=== PATIENT | female | born 1985 | race Caucasian/White ===

== ENCOUNTER 2020-05-31 19:49 | Inpatient (IN) | payer OTHER ==
[2020-05-31] MEDS ORDERED: Ondansetron 4 MG/2 ML SDV IVPUSH PRN (20:43)
[2020-05-31] MEDS ORDERED: Sodium Chloride 0.9% 10 ML Syringe FLUSH PRN (20:43)
[2020-05-31] MEDS ORDERED: Nalbuphine 10 MG/1 ML Vial IVPUSH PRN (20:43)
[2020-05-31] MEDS ORDERED: Oxytocin/Lactated Ringers 10 UNIT/1,000 ML BAG IV SCH (20:45)
--- NOTE | 2020-05-31 21:22 | PCM.LDHP ---
<Annabelle Farias I - Last Filed: 05/31/20 21:03> L&D History of Present Illness - General Date of Service: 05/31/20 Admit Problem/Dx: Patient Status Order with Admit Dx/Problem 05/31/20 20:05 Patient Status [ADT] Routine 05/31/20 20:43 Patient Status [ADT] Routine Admission Diagnosis/Problem Admission Diagnosis/Problem Source of Information: Patient History Limitations: Reports: No Limitations - History of Present Illness Introduction:: Isabel Gómez is a 35-year-old at 38 weeks and 5 days gestational age, and BHARATH of 06/09/2020, that presents to labor and delivery today after her m embranes ruptured earlier this evening. Isabel states that since Dr. Crisostomo swept her membranes this week she has noted discharge of small amounts of mucus and clear fluid. She reports that she experienced a gush of fluid at 6 PM this evening and has had several mild contractions since then. Since her water broke, she has had a continuous leaking of light brown fluid. Patient reports that she experienced contractions at 25 weeks and has been on pelvic rest and modified bed rest since then without any further signs of labor until today. Patient is a current everyday smoker and reports that throughout , she smoked approximately 5 cigarettes per day. She denies headache, changes in vision or right upper quadrant pain. She denies chest pain, shortness of breath, heart palpitations or edema. Labwork 12/06/2019: blood type O positive, HCT 42.3%, HGB 14.0, platelets 273, RPR, HBsAg, HIV, chlamydia, and gonorrhea all negative. 03/02/2020: GBS negative Severity: Mild - Related Data Allergies/Adverse Reactions: Allergies Allergy/AdvReac Type Severity Reaction Status Date / Time No Known Allergies Allergy Verified 03/02/20 21:41 Home Medications: Home Meds Vits #93/Iron Fum/FA [ Formula Tablet] 1 each PO DAILY 03/02/20 [History] H&P Review of Systems - Review of Systems: Review Of Systems: See Below General: Reports: No Symptoms HEENT: Reports: No Symptoms Pulmonary: Reports: No Symptoms Cardiovascular: Reports: No Symptoms Gastrointestinal: Reports: No Symptoms Genitourinary: Reports: No Symptoms L&D Exam - Exam Exam: See Below - Vital Signs Weight: 212 lb - Exam General: Alert, Oriented Lungs: Clear to Auscultation, Normal Respiratory Effort Cardiovascular: Regular Rate, Regular Rhythm Extremities: No Pedal Edema Orders Last 24hrs: Active Orders 24 hr Category Date Time Status Patient Status [ADT] Routine ADT 05/31/20 20:43 Active Activity as Tolerated [RC] PFP Care 05/31/20 20:43 Active Communication Order [RC] ASDIRECTED Care 05/31/20 20:43 Active Heart Tones [RC] ASDIRECTED Care 05/31/20 20:44 Active Non Stress Test [RC] PER UNIT ROUTINE Care 05/31/20 20:05 Active Notify Provider [RC] PFP Care 05/31/20 20:43 Active Notify Provider [RC] PRN Care 05/31/20 20:43 Active Peripheral IV Care [RC] . DIRECTED Care 05/31/20 20:44 Active Vital Signs [RC] PER UNIT ROUTINE Care 05/31/20 20:05 Active Regular Diet [DIET] Diet 06/01/20 Breakfast Active CBC WITH AUTO DIFF [HEME] Routine Lab 05/31/20 20:43 Ordered RAPID PLASMA REAGIN,RPR [CHEM] Routine Lab 05/31/20 20:43 Ordered Lactated Ringers [Ringers, Lactated] 1,000 ml Med 05/31/20 20:45 Active IV ASDIRECTED Nalbuphine [Nubain] Med 05/31/20 20:43 Active 10 mg IVPUSH Q2H PRN Ondansetron [Zofran] Med 05/31/20 20:43 Active 4 mg IVPUSH Q4H PRN Oxytocin/Lactated Ringers [Pitocin in LR 10 Units/1,000 Med 05/31/20 20:45 Active ML] 10 unit in 1,000 ml IV TITRATE Sodium Chloride 0.9% [Saline Flush] Med 05/31/20 20:43 Active 10 ml FLUSH ASDIRECTED PRN Electronic Heart Tones Ext w TOCO [WOMSER] Oth 05/31/20 20:43 Ordered Routine Electronic Heart Tones Internal [WOMSER] Per Unit Oth 05/31/20 20:43 Ordered Routine Peripheral IV Insertion Adult [OM.PC] Routine Oth 05/31/20 20:43 Ordered Resuscitation Status Routine Resus Stat 05/31/20 20:04 Ordered Medication Orders Lactated Ringer's (Ringers, Lactated) 1,000 mls @ 100 mls/hr IV ASDIRECTED JAELYN Oxytocin/Lactated Ringer's (Pitocin In Lr 10 Units/1,000 Ml) 10 unit in 1,000 mls @ 12 mls/hr IV TITRATE JAELYN; Protocol Nalbuphine HCl (Nubain) 10 mg IVPUSH Q2H PRN PRN Reason: Pain Ondansetron HCl (Zofran) 4 mg IVPUSH Q4H PRN PRN Reason: Nausea/Vomiting Sodium Chloride (Saline Flush) 10 ml FLUSH ASDIRECTED PRN PRN Reason: Keep Vein Open <Giovany Knight - Last Filed: 06/01/20 10:13> L&D History of Present Illness - General Admit Problem/Dx: Patient Status Order with Admit Dx/Problem 05/31/20 20:05 Patient Status [ADT] Routine 05/31/20 20:43 Patient Status [ADT] Routine Admission Diagnosis/Problem Admission Diagnosis/Problem - History of Present Illness Introduction:: Patient had prior cholecystectomy 2011 and gastric sleeve surgery 2015. L&D Exam - Vital Signs Vital Signs: Last Vital Signs Temp 98.5 F 05/31/20 20:05 Pulse 85 05/31/20 20:05 Resp 14 05/31/20 20:05 BP 122/77 05/31/20 20:05 Pulse Ox 100 05/31/20 20:05 - OB Specific Fundal Height In cm: 37 Contraction Intensity: Mild Movement: Active Heart Tones: Present Heart Tones per Min: 140 Heart Rate (FHR) Variability: Moderate (6-25 bmp) Presentation: Vertex - Waldrop Score Waldrop Score Cervix Position: Posterior [place] Score Consistency: Soft [place] Score Effacement: >80% [place] Score Dilation: 3-4 cm Wal[place] Score 's Station: -1 ,0 Wal[place] Score Total: 9 - Exam HEENT: Mucosa Moist & [place] - Patient Data Lab Results Last 24 hrs: Laboratory Results - last 24 hr 05/31/20 05/31/20 05/31/20 Range/Units 20:50 20:50 20:55 WBC 9.05 (3.98-10.04) K/mm3 RBC 4.01 (3.98-5.22) M/mm3 Hgb 10.9 L D (11.2-15.7) gm/dl Hct 34.6 (34.1-44.9) % MCV 86.3 (79.4-94.8) fl MCH 27.2 (25.6-32.2) pg MCHC 31.5 L (32.2-35.5) g/dl RDW Std Deviation 45.3 (36.4-46.3) fL Plt Count 275 (182-369) K/mm3 MPV 9.1 L (9.4-12.3) fl Neut % (Auto) 61.8 (34.0-71.1) % Lymph % (Auto) 27.6 (19.3-51.7) % [place] % (Auto) 9.3 (4.7-12.5) % Eos % (Auto) 0.9 (0.7-5.8) Baso % (Auto) 0.2 (0.1-1.2) % Neut # (Auto) 5.59 (1.56-6.13) K/mm3 Lymph # (Auto) 2.50 (1.18-3.74) K/mm3 [place] # (Auto) 0.84 H (0.24-0.36) K/mm3 Eos # (Auto) 0.08 (0.04-0.36) K/mm3 Baso # (Auto) 0.02 (0.01-0.08) K/mm3 RPR Non-reactive (NONREACTIVE) SARS-CoV-2 RNA (EVONNE) Negative (NEGATIVE) Result Diagrams: 05/31/20 20:50 - Problem List (1) 38 weeks gestation of SNOMED Code(s): 34851835 ICD Code: Z3A.38 - 38 WEEKS GESTATION OF Status: Acute Current Visit: Yes Problem List Initiated/Reviewed/Updated: No Orders Last 24hrs: Active Orders 24 hr Category Date Time Status Patient Status [ADT] Routine ADT 05/31/20 20:43 Active Activity as Tolerated [RC] PFP Care 05/31/20 20:43 Active Communication Order [RC] ASDIRECTED Care 05/31/20 20:43 Active Heart Tones [RC] ASDIRECTED Care 05/31/20 20:44 Active Notify Provider [RC] ASDIRECTED Care 06/01/20 08:11 Active Notify Provider [RC] PFP Care 05/31/20 20:43 Active Notify Provider [RC] PRN Care 05/31/20 20:43 Active Peripheral IV Care [RC] . DIRECTED Care 05/31/20 20:44 Active Vital Signs [RC] PER UNIT ROUTINE Care 05/31/20 20:05 Active Regular Diet [DIET] Diet 06/01/20 Breakfast Active Bupivacaine/fentaNYL/NS [fentaNYL/Bupivacaine/NS 2 MCG- Med 06/01/20 08:11 Active 0.125% 100 ML] 100 ml EPIDUR ASDIRECTED PRN Lactated Ringers [Ringers, Lactated] 1,000 ml Med 05/31/20 20:45 Active IV ASDIRECTED Nalbuphine [Nubain] Med 05/31/20 20:43 Active 10 mg IVPUSH Q2H PRN Ondansetron [Zofran] Med 05/31/20 20:43 Active 4 mg IVPUSH Q4H PRN Oxytocin/Lactated Ringers [Pitocin in LR 10 Units/1,000 Med 05/31/20 20:45 Active ML] 10 unit in 1,000 ml IV TITRATE Sodium Chloride 0.9% [Saline Flush] Med 05/31/20 20:43 Active 10 ml FLUSH ASDIRECTED PRN diphenhydrAMINE [Benadryl] Med 06/01/20 08:11 Active 25 mg IVPUSH Q6H PRN ePHEDrine [ePHEDrine sulfate] Med 06/01/20 08:11 Active 5 mg IVPUSH ASDIRECTED PRN fentaNYL [Sublimaze] Med 06/01/20 08:11 Active 100 mcg EPIDUR Q3H PRN Electronic Heart Tones Ext w TOCO [WOMSER] Oth 05/31/20 20:43 Ordered Routine Electronic Heart Tones Internal [WOMSER] Per Unit Oth 05/31/20 20:43 Ordered Routine Peripheral IV Insertion Adult [OM.PC] Routine Oth 05/31/20 20:43 Ordered Resuscitation Status Routine Resus Stat 05/31/20 20:04 Ordered Medication Orders Diphenhydramine HCl (Benadryl) 25 mg IVPUSH Q6H PRN PRN Reason: pruritis Ephedrine Sulfate (Ephedrine Sulfate) 5 mg IVPUSH ASDIRECTED PRN PRN Reason: Hypotension Fentanyl (Sublimaze) 100 mcg EPIDUR Q3H PRN PRN Reason: Pain Last Admin: 06/01/20 08:23 Dose: 100 mcg Documented by: OSWALDO Fentanyl/Bupivacaine HCl (Fentanyl/Bupivacaine/Ns 2 Mcg-0.125% 100 Ml) 100 ml EPIDUR ASDIRECTED PRN PRN Reason: Pain Last Admin: 06/01/20 08:23 Dose: 100 ml Documented by: OSWALDO Lactated Ringer's (Ringers, Lactated) 1,000 mls @ 100 mls/hr IV ASDIRECTED JAELYN Last Admin: 06/01/20 08:35 Dose: 999 mls/hr Documented by: Infusion: 06/01/20 08:34 Dose: 999 mls/hr Documented by: Admin: 06/01/20 07:32 Dose: 100 mls/hr Documented by: Infusion: 06/01/20 07:32 Dose: 100 mls/hr Documented by: Admin: 06/01/20 05:00 Dose: 100 mls/hr Documented by: EILEEN Oxytocin/Lactated Ringer's (Pitocin In Lr 10 Units/1,000 Ml) 10 unit in 1,000 mls @ 12 mls/hr IV TITRATE [facility]; Protocol Last Titration: 06/01/20 09:44 Dose: 6 munits/min, 36 mls/hr Documented by: Titration: 06/01/20 08:05 Dose: 4 munits/min, 24 mls/hr Documented by: Titration: 06/01/20 07:35 Dose: 6 munits/min, 36 mls/hr Documented by: Titration: 06/01/20 06:35 Dose: 4 munits/min, 24 mls/hr Documented by: Admin: 06/01/20 05:05 Dose: 2 munits/min, 12 mls/hr Documented by: EILEEN Nalbuphine HCl (Nubain) 10 mg IVPUSH Q2H PRN PRN Reason: Pain Ondansetron HCl (Zofran) 4 mg IVPUSH Q4H PRN PRN Reason: Nausea/Vomiting Last Admin: 05/31/20 23:41 Dose: 4 mg Documented by: MCCRTAM Sodium Chloride (Saline Flush) 10 ml FLUSH ASDIRECTED PRN PRN Reason: Keep Vein Open Assessment/Plan Comment:: Patient seen and examined by me and discussed with student. Plan delivery.
[2020-06-01] MEDS ORDERED: Bupivacaine 0.25% 10 ML SDV ONE
[2020-06-01] MEDS: Lactated Ringers 1,000 ML IV SCH ×4 (05:00→10:19)
[2020-06-01] MEDS ORDERED: diphenhydrAMINE 50 MG/ML SDV IVPUSH PRN (08:11)
[2020-06-01] MEDS ORDERED: ePHEDrine 50 MG/ML SDV IVPUSH PRN (08:11)
[2020-06-01] MEDS ORDERED: fentaNYL 100 MCG/2 ML SDV EPIDUR PRN (08:11)
[2020-06-01] MEDS ORDERED: Bupivacaine/fentaNYL/NS 100 ML Bag EPIDUR PRN (08:11)
--- NOTE | 2020-06-01 09:11 | PCM.PREANE ---
Preanesthetic Assessment - Procedure Proposed Procedure: Labor Epidural - Anesthesia/Transfusion/Family Hx Anesthesia History: Prior Anesthesia Without Reaction Family History of Anesthesia Reaction: No Transfusion History: No Prior Transfusion(s) - Review of Systems General: No Symptoms Pulmonary: No Symptoms (Smoker down to 5 cigarettes a day.), Cough (Noted during visit, occasional productivity. ) Cardiovascular: No Symptoms Gastrointestinal: No Symptoms Neurological: No Symptoms Other: Reports: None - Physical Assessment Vital Signs: Last Vital Signs Temp 36.9 C 05/31/20 20:05 Pulse 85 05/31/20 20:05 Resp 14 05/31/20 20:05 BP 122/77 05/31/20 20:05 Pulse Ox 100 05/31/20 20:05 Height: 1.57 m Weight: 96.162 kg ASA Class: 2 Mental Status: Alert & Oriented x3 Airway Class: Mallampati = 2 Dentition: Reports: Normal Dentition Thyro-Mental Finger Breadths: 2 Mouth Opening Finger Breadths: 3 ROM/Head Extension: Full Lungs: Clear to Auscultation, Normal Respiratory Effort Cardiovascular: Regular Rate, Regular Rhythm - Lab Values: Laboratory Last Values WBC 9.05 K/mm3 (3.98-10.04) 05/31/20 20:50 RBC 4.01 M/mm3 (3.98-5.22) 05/31/20 20:50 Hgb 10.9 gm/dl (11.2-15.7) L D 05/31/20 20:50 Hct 34.6 % (34.1-44.9) 05/31/20 20:50 MCV 86.3 fl (79.4-94.8) 05/31/20 20:50 MCH 27.2 pg (25.6-32.2) 05/31/20 20:50 MCHC 31.5 g/dl (32.2-35.5) L 05/31/20 20:50 RDW Std Deviation 45.3 fL (36.4-46.3) 05/31/20 20:50 Plt Count 275 K/mm3 (182-369) 05/31/20 20:50 MPV 9.1 fl (9.4-12.3) L 05/31/20 20:50 Neut % (Auto) 61.8 % (34.0-71.1) 05/31/20 20:50 Lymph % (Auto) 27.6 % (19.3-51.7) 05/31/20 20:50 [place] % (Auto) 9.3 % (4.7-12.5) 05/31/20 20:50 Eos % (Auto) 0.9 (0.7-5.8) 05/31/20 20:50 Baso % (Auto) 0.2 % (0.1-1.2) 05/31/20 20:50 Neut # (Auto) 5.59 K/mm3 (1.56-6.13) 05/31/20 20:50 Lymph # (Auto) 2.50 K/mm3 (1.18-3.74) 05/31/20 20:50 [place] # (Auto) 0.84 K/mm3 (0.24-0.36) H 05/31/20 20:50 Eos # (Auto) 0.08 K/mm3 (0.04-0.36) 05/31/20 20:50 Baso # (Auto) 0.02 K/mm3 (0.01-0.08) 05/31/20 20:50 RPR Non-reactive (NONREACTIVE) 05/31/20 20:50 SARS-CoV-2 RNA (EVONNE) Negative (NEGATIVE) 05/31/20 20:55 - Allergies Allergies/Adverse Reactions: Allergies Allergy/AdvReac Type Severity Reaction Status Date / Time No Known Allergies Allergy Verified 03/02/20 21:41 - Acknowledgements Anesthesia Type Planned: Epidural Pt an Appropriate Candidate for the Planned Anesthesia: Yes Alternatives and Risks of Anesthesia Discussed w Pt/Guardian: Yes Pt/Guardian Understands and Agrees with Anesthesia Plan: Yes PreAnesthesia Questionnaire HEENT History: Reports: None Cardiovascular History: Reports: None Respiratory History: Reports: None Gastrointestinal History: Reports: None Genitourinary History: Reports: None [employer] History: Reports: Musculoskeletal History: Reports: None Neurological History: Reports: Migraines Other Neuro History: hx migraine headaches as a teen Psychiatric History: Reports: None Endocrine/Metabolic History: Reports: None Hematologic History: Reports: None Immunologic History: Reports: None Oncologic (Cancer) History: Reports: None Dermatologic History: Reports: None - Infectious Disease History Infectious Disease History: Reports: None - Past Surgical History Head Surgeries/Procedures: Reports: None HEENT Surgical History: Reports: Other (See Below) Other HEENT Surgeries/Procedures: Wears glasses Cardiovascular Surgical History: Reports: None Respiratory Surgical History: Reports: None GI Surgical History: Reports: Bariatric Procedure Other GI Surgeries/Procedures: Gastric sleeve surgical procedure 2018-lost 165lbs. Female Surgical History: Reports: None Endocrine Surgical History: Reports: None Neurological Surgical History: Reports: None Musculoskeletal Surgical History: Reports: None Oncologic Surgical History: Reports: None Dermatological Surgical History: Reports: None - SUBSTANCE USE Tobacco Use Status *Q: Current Every Day Tobacco User Tobacco Use Within Last Twelve Months: Cigarettes Second Hand Smoke Exposure: No Recreational Drug Use History: No - HOME MEDS Home Medications: Home Meds Vits #93/Iron Fum/FA [ Formula Tablet] 1 each PO DAILY 03/02/20 [History] - CURRENT (IN HOUSE) MEDS Current Meds: Current Medications Diphenhydramine HCl (Benadryl) 25 mg IVPUSH Q6H PRN PRN Reason: pruritis Ephedrine Sulfate (Ephedrine Sulfate) 5 mg IVPUSH ASDIRECTED PRN PRN Reason: Hypotension Fentanyl (Sublimaze) 100 mcg EPIDUR Q3H PRN PRN Reason: Pain Last Admin: 06/01/20 08:23 Dose: 100 mcg Documented by: Fentanyl/Bupivacaine HCl (Fentanyl/Bupivacaine/Ns 2 Mcg-0.125% 100 Ml) 100 ml EPIDUR ASDIRECTED PRN PRN Reason: Pain Last Admin: 06/01/20 08:23 Dose: 100 ml Documented by: Lactated Ringer's (Ringers, Lactated) 1,000 mls @ 100 mls/hr IV ASDIRECTED JAELYN Last Admin: 06/01/20 08:35 Dose: 999 mls/hr Documented by: Oxytocin/Lactated Ringer's (Pitocin In Lr 10 Units/1,000 Ml) 10 unit in 1,000 mls @ 12 mls/hr IV TITRATE JAELYN; Protocol Last Titration: 06/01/20 08:05 Dose: 4 munits/min, 24 mls/hr Documented by: Nalbuphine HCl (Nubain) 10 mg IVPUSH Q2H PRN PRN Reason: Pain Ondansetron HCl (Zofran) 4 mg IVPUSH Q4H PRN PRN Reason: Nausea/Vomiting Last Admin: 05/31/20 23:41 Dose: 4 mg Documented by: Sodium Chloride (Saline Flush) 10 ml FLUSH ASDIRECTED PRN PRN Reason: Keep Vein Open
--- NOTE | 2020-06-01 10:17 | PCM.SN.2 ---
- Free Text/Narrative Note: At 1005 hrs. cervix is 5 cm dilated 90% effaced 0 station posterior soft uterine activity Suni heart tone electrode placed without difficulty. NU oxytocin augmentation at present time. Good relief from epidural.
[2020-06-01] MEDS ORDERED: Misoprostol 200 MCG Tab ONE ×2 (11:32→11:33)
--- NOTE | 2020-06-01 11:48 | PCM.DEL ---
L & D Note - General Info Date of Service: 06/01/20 Mother's Due Date: 06/09/20 - Delivery Note Labor: Spontaneous, Augmented by Oxytocin Delivery Outcome: Livebirth (Mild liveborn Tuesday06/01/2020 1125 hrs. SUAD nuchal cord x1 weight 2180 g / 4 pounds 12.9 ounces, 8/9 under epidural anesthesia over no episiotomy no laceration estimated blood loss 750 mL Cytotec 200 mcg each cheek x2 doses (400 mcg to aid in hemostasis.) Infant Delivery Method: Spontaneous Vaginal Delivery-Single Delivery Mode: Spontaneous Presentation: Right Occiput Anterior (SUAD) Nuchal Cord: Present (x1 reduced over left shoulder) Prep: Povidone-Iodine (Betadine Anesthesia Type: Epidural Amniotic Fluid Description: Clear Episiotomy Type: None Laceration: None Placenta: Intact, Spontaneous (1128 hrs. 06/01/2020 small but not calcified central cord insertion discarded) Estimated Blood Loss: 750 Resuscitation Needed: No [place]: Suctioned, Bulb Syringe, Stimulated, Warmed, [place] Used, Warmer Used Provider: Giovany Knight Score 1 min: 8 Score 5 min: 9 Induction Criteria - Augmentation Estimated Pelvis: Reports: Adequate Weight Estimated:: Reports: SGA Estimated Weight if LGA: 5 lb 8 oz Reassuring Monitoring Strip: Yes Absence of Tachy Systole: Yes - General Info Date of Service: 06/01/20 Admission Dx/Problem (Free Text): Patient Status Order with Admit Dx/Problem 05/31/20 20:05 Patient Status [ADT] Routine 05/31/20 20:43 Patient Status [ADT] Routine Admission Diagnosis/Problem Admission Diagnosis/Problem Functional Status: Reports: Pain Controlled - Review of Systems General: Reports: No Symptoms HEENT: Reports: No Symptoms Pulmonary: Reports: No Symptoms Cardiovascular: Reports: No Symptoms Gastrointestinal: Reports: No Symptoms Genitourinary: Reports: No Symptoms Musculoskeletal: Reports: No Symptoms Skin: Reports: No Symptoms Neurological: Reports: No Symptoms Psychiatric: Reports: No Symptoms - Patient Data Vitals - Most Recent: Last Vital Signs Temp 98.5 F 05/31/20 20:05 Pulse 85 05/31/20 20:05 Resp 14 05/31/20 20:05 BP 122/77 05/31/20 20:05 Pulse Ox 100 05/31/20 20:05 Weight - Most Recent: 212 lb I&O - Last 24 Hours: Intake & Output 05/31/20 06/01/20 06/01/20 22:59 06:59 14:59 Intake Total 300 Balance 300 Lab Results Last 24 Hours: Laboratory Results - last 24 hr 05/31/20 05/31/20 05/31/20 Range/Units 20:50 20:50 20:55 WBC 9.05 (3.98-10.04) K/mm3 RBC 4.01 (3.98-5.22) M/mm3 Hgb 10.9 L D (11.2-15.7) gm/dl Hct 34.6 (34.1-44.9) % MCV 86.3 (79.4-94.8) fl MCH 27.2 (25.6-32.2) pg MCHC 31.5 L (32.2-35.5) g/dl RDW Std Deviation 45.3 (36.4-46.3) fL Plt Count 275 (182-369) K/mm3 MPV 9.1 L (9.4-12.3) fl Neut % (Auto) 61.8 (34.0-71.1) % Lymph % (Auto) 27.6 (19.3-51.7) % [place] % (Auto) 9.3 (4.7-12.5) % Eos % (Auto) 0.9 (0.7-5.8) Baso % (Auto) 0.2 (0.1-1.2) % Neut # (Auto) 5.59 (1.56-6.13) K/mm3 Lymph # (Auto) 2.50 (1.18-3.74) K/mm3 [place] # (Auto) 0.84 H (0.24-0.36) K/mm3 Eos # (Auto) 0.08 (0.04-0.36) K/mm3 Baso # (Auto) 0.02 (0.01-0.08) K/mm3 RPR Non-reactive (NONREACTIVE) SARS-CoV-2 RNA (EVONNE) Negative (NEGATIVE) Med Orders - Current: Current Medications Diphenhydramine HCl (Benadryl) 25 mg IVPUSH Q6H PRN PRN Reason: pruritis Ephedrine Sulfate (Ephedrine Sulfate) 5 mg IVPUSH ASDIRECTED PRN PRN Reason: Hypotension Fentanyl (Sublimaze) 100 mcg EPIDUR Q3H PRN PRN Reason: Pain Last Admin: 06/01/20 08:23 Dose: 100 mcg Documented by: Fentanyl/Bupivacaine HCl (Fentanyl/Bupivacaine/Ns 2 Mcg-0.125% 100 Ml) 100 ml EPIDUR ASDIRECTED PRN PRN Reason: Pain Last Admin: 06/01/20 08:23 Dose: 100 ml Documented by: Lactated Ringer's (Ringers, Lactated) 1,000 mls @ 100 mls/hr IV ASDIRECTED JAELYN Last Admin: 06/01/20 10:19 Dose: 999 mls/hr Documented by: Oxytocin/Lactated Ringer's (Pitocin In Lr 10 Units/1,000 Ml) 10 unit in 1,000 mls @ 12 mls/hr IV TITRATE JAELYN; Protocol Last Titration: 06/01/20 10:50 Dose: 8 munits/min, 48 mls/hr Documented by: Nalbuphine HCl (Nubain) 10 mg IVPUSH Q2H PRN PRN Reason: Pain Ondansetron HCl (Zofran) 4 mg IVPUSH Q4H PRN PRN Reason: Nausea/Vomiting Last Admin: 05/31/20 23:41 Dose: 4 mg Documented by: Sodium Chloride (Saline Flush) 10 ml FLUSH ASDIRECTED PRN PRN Reason: Keep Vein Open Discontinued Medications Misoprostol (Cytotec) Confirm Administered Dose 200 mcg .ROUTE .STK-MED ONE Stop: 06/01/20 11:33 Misoprostol (Cytotec) Confirm Administered Dose 200 mcg .ROUTE .STK-MED ONE Stop: 06/01/20 11:34 - Exam General: Alert, Oriented HEENT: Pupils Equal, Mucous Membr. Moist/[place] Neck: Supple Lungs: Clear to Auscultation, Normal Respiratory Effort Cardiovascular: Regular Rate, Regular Rhythm GI/Abdominal Exam: Normal Bowel Sounds (Female) Exam: Normal External Exam Extremities: Normal Inspection, Non-Tender, No Pedal Edema, Normal Capillary Refill Skin: Warm, Dry, Intact Psy/Mental Status: Alert, Normal Affect, Normal Mood - Problem List & Annotations (1) 38 weeks gestation of SNOMED Code(s): 75629630 Code(s): Z3A.38 - 38 WEEKS GESTATION OF Status: Acute Current Visit: Yes (2) High risk due to smoking SNOMED Code(s): 95364566, 70346489 Code(s): O99.330 - SMOKING (TOBACCO) COMPLICATING , UNSP TRIMESTER Status: Acute Current Visit: Yes (3) Intrauterine growth restriction (IUGR) affecting care of mother SNOMED Code(s): 308143249 Code(s): O36.5990 - MATERN CARE FOR OTH OR SUSP POOR FETL GRTH, UNSP TRI, UNSP Status: Acute Current Visit: Yes Qualifiers: Fetus number: single or unspecified fetus Trimester: third trimester Qualified Code(s): O36.5930 - Maternal care for other known or suspected poor growth, third trimester, not applicable or unspecified (4) Nuchal cord with compression, delivered, current hospitalization SNOMED Code(s): 912776725, 978393854 Code(s): O69.1XX0 - LABOR AND DELIVERY COMP BY CORD AROUND NECK, W COMPRSN, UNSP Status: Acute Current Visit: Yes - Problem List Review Problem List Initiated/Reviewed/Updated: No - My Orders Last 24 Hours: My Active Orders 05/31/20 20:04 Resuscitation Status Routine 05/31/20 20:05 Vital Signs [RC] PER UNIT ROUTINE 05/31/20 20:43 Patient Status [ADT] Routine Activity as Tolerated [RC] PFP Communication Order [RC] ASDIRECTED Notify Provider [RC] PFP Notify Provider [RC] PRN Nalbuphine [Nubain] 10 mg IVPUSH Q2H PRN Ondansetron [Zofran] 4 mg IVPUSH Q4H PRN Sodium Chloride 0.9% [Saline Flush] 10 ml FLUSH ASDIRECTED PRN Electronic Heart Tones Ext w TOCO [WOMSER] Routine Electronic Heart Tones Internal [WOMSER] Per Unit Routine Peripheral IV Insertion Adult [OM.PC] Routine 05/31/20 20:44 Heart Tones [RC] ASDIRECTED Peripheral IV Care [RC] . DIRECTED 05/31/20 20:45 Lactated Ringers [Ringers, Lactated] 1,000 ml IV ASDIRECTED Oxytocin/Lactated Ringers [Pitocin in LR 10 Units/1,000 ML] 10 unit in 1,000 ml IV TITRATE 06/01/20 Breakfast Regular Diet [DIET] - Plan Plan:: Patient seen and examined by me and discussed with student. Plan delivery.
[2020-06-01] MEDS ORDERED: Misoprostol 200 MCG Tab PO PRN (12:16)
[2020-06-01] MEDS ORDERED: Acetaminophen 325 MG Tab PO PRN (12:16)
[2020-06-01] MEDS ORDERED: Witch Hazel Medicated Pads 40/Jar TOP PRN (16:34)
[2020-06-01] MEDS ORDERED: Benzocaine/Menthol 20%-0.5% Spray 56 GM Canister TOP PRN (16:34)
[2020-06-01] MEDS ORDERED: Calcium Carbonate 500 MG Tab.Chew PO PRN (20:46)
[2020-06-01] MEDS: Ibuprofen 600 MG Tab PO PRN (20:49)
[2020-06-01] MEDS: Docusate Sodium 100 MG Cap PO PRN (20:54)
[2020-06-02] MEDS: Ibuprofen 600 MG Tab PO PRN ×4 (02:59→21:40)
--- NOTE | 2020-06-02 07:11 | PCM48HPAN ---
Post Anesthesia Note - EVALUATION WITHIN 48HRS OF ANESTHETIC Vital Signs in Normal Range: Yes Patient Participated in Evaluation: Yes Respiratory Function Stable: Yes Airway Patent: Yes Cardiovascular Function Stable: Yes Hydration Status Stable: Yes Pain Control Satisfactory: Yes Nausea and Vomiting Control Satisfactory: Yes Mental Status Recovered: Yes Vital Signs: Last Vital Signs Temp 36.3 C 06/02/20 03:42 Pulse 70 06/02/20 03:42 Resp 16 06/02/20 03:42 BP 118/85 06/02/20 03:42 Pulse Ox 96 06/02/20 03:42
--- NOTE | 2020-06-02 12:56 | PCM.SN.2 ---
- Free Text/Narrative Note: exam Afebrile, chest clear, uterus at umbilicus -1. No heavy vaginal bleeding. No leg cramping.
[2020-06-02] MEDS: Docusate Sodium 100 MG Cap PO PRN (16:30)
[2020-06-03] MEDS: Docusate Sodium 100 MG Cap PO PRN (03:51)
--- NOTE | 2020-06-03 09:52 | PCM.DCSUM1 ---
Discharge Summary - Hospital Course Free Text/Narrative:: [place] [facility] L/D Delivery Note Patient Name: DEB CAN Date of : 87 Patient Status: Inpatient Attending Provider: Giovany Knight Date: 06/01/20 11:43 Initialization Date: 06/01/20 11:43 L & D Note - General Info Date of Service: 06/01/20 Mother's Due Date: 06/09/20 - Delivery Note Labor: Spontaneous, Augmented by Oxytocin Delivery Outcome: Livebirth (Mild liveborn Tuesday06/01/2020 1125 hrs. SUAD nuchal cord x1 weight 2180 g / 4 pounds 12.9 ounces, 8/9 under epidural anesthesia over no episiotomy no laceration estimated blood loss 750 mL Cytotec 200 mcg each cheek x2 doses (400 mcg to aid in hemostasis.) Infant Delivery Method: Spontaneous Vaginal Delivery-Single Infant Delivery Mode: Spontaneous Presentation: Right Occiput Anterior (SUAD) Nuchal Cord: Present (x1 reduced over left shoulder) Prep: Povidone-Iodine (Betadine Anesthesia Type: Epidural Amniotic Fluid Description: Clear Episiotomy Type: None Laceration: None Placenta: Intact, Spontaneous (1128 hrs. 06/01/2020 small but not calcified central cord insertion discarded) Estimated Blood Loss: 750 Resuscitation Needed: No : Suctioned, Bulb Syringe, Stimulated, Warmed, Bigelow Used, Warmer Used Provider: Giovany Knight Score 1 min: 8 Score 5 min: 9 Induction Criteria - Augmentation Estimated Pelvis: Reports: Adequate Weight Estimated:: Reports: SGA Estimated Weight if LGA: 5 lb 8 oz Reassuring Monitoring Strip: Yes Absence of Tachy Systole: Yes - General Info Date of Service: 06/01/20 Admission Dx/Problem (Free Text): Patient Status Order with Admit Dx/Problem 05/31/20 20:05 Patient Status [ADT] Routine 05/31/20 20:43 Patient Status [ADT] Routine Admission Diagnosis/Problem Admission Diagnosis/Problem Functional Status: Reports: Pain Controlled - Review of Systems General: Reports: No Symptoms HEENT: Reports: No Symptoms Pulmonary: Reports: No Symptoms Cardiovascular: Reports: No Symptoms Gastrointestinal: Reports: No Symptoms Genitourinary: Reports: No Symptoms Musculoskeletal: Reports: No Symptoms Skin: Reports: No Symptoms Neurological: Reports: No Symptoms Psychiatric: Reports: No Symptoms - Patient Data Vitals - Most Recent: Last Vital Signs Temp 98.5 F 05/31/20 20:05 Pulse 85 05/31/20 20:05 Resp 14 05/31/20 20:05 BP 122/77 05/31/20 20:05 Pulse Ox 100 05/31/20 20:05 Weight - Most Recent: 212 lb I&O - Last 24 Hours: Intake & Output 05/31/20 06/01/20 06/01/20 22:59 06:59 14:59 Intake Total 300 Balance 300 Lab Results Last 24 Hours: Laboratory Results - last 24 hr 05/31/20 05/31/20 05/31/20 Range/Units 20:50 20:50 20:55 WBC 9.05 (3.98-10.04) K/mm3 RBC 4.01 (3.98-5.22) M/mm3 Hgb 10.9 L D (11.2-15.7) gm/dl Hct 34.6 (34.1-44.9) % MCV 86.3 (79.4-94.8) fl MCH 27.2 (25.6-32.2) pg MCHC 31.5 L (32.2-35.5) g/dl RDW Std Deviation 45.3 (36.4-46.3) fL Plt Count 275 (182-369) K/mm3 MPV 9.1 L (9.4-12.3) fl Neut % (Auto) 61.8 (34.0-71.1) % Lymph % (Auto) 27.6 (19.3-51.7) % [place] % (Auto) 9.3 (4.7-12.5) % Eos % (Auto) 0.9 (0.7-5.8) Baso % (Auto) 0.2 (0.1-1.2) % Neut # (Auto) 5.59 (1.56-6.13) K/mm3 Lymph # (Auto) 2.50 (1.18-3.74) K/mm3 [place] # (Auto) 0.84 H (0.24-0.36) K/mm3 Eos # (Auto) 0.08 (0.04-0.36) K/mm3 Baso # (Auto) 0.02 (0.01-0.08) K/mm3 RPR Non-reactive (NONREACTIVE) SARS-CoV-2 RNA (EVONNE) Negative (NEGATIVE) Med Orders - Current: Current Medications Diphenhydramine HCl (Benadryl) 25 mg IVPUSH Q6H PRN PRN Reason: pruritis Ephedrine Sulfate (Ephedrine Sulfate) 5 mg IVPUSH ASDIRECTED PRN PRN Reason: Hypotension Fentanyl (Sublimaze) 100 mcg EPIDUR Q3H PRN PRN Reason: Pain Last Admin: 06/01/20 08:23 Dose: 100 mcg Documented by: Fentanyl/Bupivacaine HCl (Fentanyl/Bupivacaine/Ns 2 Mcg-0.125% 100 Ml) 100 ml EPIDUR ASDIRECTED PRN PRN Reason: Pain Last Admin: 06/01/20 08:23 Dose: 100 ml Documented by: Lactated Ringer's (Ringers, Lactated) 1,000 mls @ 100 mls/hr IV ASDIRECTED JAELYN Last Admin: 06/01/20 10:19 Dose: 999 mls/hr Documented by: Oxytocin/Lactated Ringer's (Pitocin In Lr 10 Units/1,000 Ml) 10 unit in 1,000 mls @ 12 mls/hr IV TITRATE JAELYN; Protocol Last Titration: 06/01/20 10:50 Dose: 8 munits/min, 48 mls/hr Documented by: Nalbuphine HCl (Nubain) 10 mg IVPUSH Q2H PRN PRN Reason: Pain Ondansetron HCl (Zofran) 4 mg IVPUSH Q4H PRN PRN Reason: Nausea/Vomiting Last Admin: 05/31/20 23:41 Dose: 4 mg Documented by: Sodium Chloride (Saline Flush) 10 ml FLUSH ASDIRECTED PRN PRN Reason: Keep Vein Open Discontinued Medications Misoprostol (Cytotec) Confirm Administered Dose 200 mcg .ROUTE .STK-MED ONE Stop: 06/01/20 11:33 Misoprostol (Cytotec) Confirm Administered Dose 200 mcg .ROUTE .STK-MED ONE Stop: 06/01/20 11:34 - Exam General: Alert, Oriented HEENT: Pupils Equal, Mucous Membr. Moist/[place] Neck: Supple Lungs: Clear to Auscultation, Normal Respiratory Effort Cardiovascular: Regular Rate, Regular Rhythm GI/Abdominal Exam: Normal Bowel Sounds (Female) Exam: Normal External Exam Extremities: Normal Inspection, Non-Tender, No Pedal Edema, Normal Capillary Refill Skin: Warm, Dry, Intact Psy/Mental Status: Alert, Normal Affect, Normal Mood - Problem List & Annotations (1) 38 weeks gestation of SNOMED Code(s): 27444208 Code(s): Z3A.38 - 38 WEEKS GESTATION OF Status: Acute Current Visit: Yes (2) High risk due to smoking SNOMED Code(s): 45373947, 74121352 Code(s): O99.330 - SMOKING (TOBACCO) COMPLICATING , UNSP TRIMESTER Status: Acute Current Visit: Yes (3) Intrauterine growth restriction (IUGR) affecting care of mother SNOMED Code(s): 943640014 Code(s): O36.5990 - MATERN CARE FOR OTH OR SUSP POOR FETL GRTH, UNSP TRI, UNSP Status: Acute Current Visit: Yes Qualifiers: Fetus number: single or unspecified fetus Trimester: third trimester Qualified Code(s): O36.5930 - Maternal care for other known or suspected poor growth, third trimester, not applicable or unspecified (4) Nuchal cord with compression, delivered, current hospitalization SNOMED Code(s): 290826508, 157567638 Code(s): O69.1XX0 - LABOR AND DELIVERY COMP BY CORD AROUND NECK, W COMPRSN, UNSP Status: Acute Current Visit: Yes - Problem List Review Problem List Initiated/Reviewed/Updated: No - My Orders Last 24 Hours: My Active Orders 05/31/20 20:04 Resuscitation Status Routine 05/31/20 20:05 Vital Signs [RC] PER UNIT ROUTINE 05/31/20 20:43 Patient Status [ADT] Routine Activity as Tolerated [RC] PFP Communication Order [RC] ASDIRECTED Notify Provider [RC] PFP Notify Provider [RC] PRN Nalbuphine [Nubain] 10 mg IVPUSH Q2H PRN Ondansetron [Zofran] 4 mg IVPUSH Q4H PRN Sodium Chloride 0.9% [Saline Flush] 10 ml FLUSH ASDIRECTED PRN Electronic Heart Tones Ext w TOCO [WOMSER] Routine Electronic Heart Tones Internal [WOMSER] Per Unit Routine Peripheral IV Insertion Adult [OM.PC] Routine 05/31/20 20:44 Heart Tones [RC] ASDIRECTED Peripheral IV Care [RC] . DIRECTED 05/31/20 20:45 Lactated Ringers [Ringers, Lactated] 1,000 ml IV ASDIRECTED Oxytocin/Lactated Ringers [Pitocin in LR 10 Units/1,000 ML] 10 unit in 1,000 ml IV TITRATE 06/01/20 Breakfast Regular Diet [DIET] - Plan Plan:: Patient seen and examined by me and discussed with student. Plan delivery. HPI Initial Comments: [place] [facility] L/D Delivery Note Patient Name: DEB CAN Date of : 87 Patient Status: Inpatient Attending Provider: Giovany Knight Date: 06/01/20 11:43 Initialization Date: 06/01/20 11:43 L & D Note - General Info Date of Service: 06/01/20 Mother's Due Date: 06/09/20 - Delivery Note Labor: Spontaneous, Augmented by Oxytocin Delivery Outcome: Livebirth (Mild liveborn Tuesday06/01/2020 1125 hrs. SUAD nuchal cord x1 weight 2180 g / 4 pounds 12.9 ounces, 8/9 under epidural anesthesia over no episiotomy no laceration estimated blood loss 750 mL Cytotec 200 mcg each cheek x2 doses (400 mcg to aid in hemostasis.) Delivery Method: Spontaneous Vaginal Delivery-Single Infant Delivery Mode: Spontaneous Presentation: Right Occiput Anterior (SUAD) Nuchal Cord: Present (x1 reduced over left shoulder) Prep: Povidone-Iodine (Betadine Anesthesia Type: Epidural Amniotic Fluid Description: Clear Episiotomy Type: None Laceration: None Placenta: Intact, Spontaneous (1128 hrs. 06/01/2020 small but not calcified central cord insertion discarded) Estimated Blood Loss: 750 Resuscitation Needed: No : Suctioned, Bulb Syringe, Stimulated, Warmed, Bigelow Used, Warmer Used Provider: Giovany Ehsan Lowe Score 1 min: 8 Score 5 min: 9 Induction Criteria - Augmentation Estimated Pelvis: Reports: Adequate Weight Estimated:: Reports: SGA Estimated Weight if LGA: 5 lb 8 oz Reassuring Monitoring Strip: Yes Absence of Tachy Systole: Yes - General Info Date of Service: 06/01/20 Admission Dx/Problem (Free Text): Patient Status Order with Admit Dx/Problem 05/31/20 20:05 Patient Status [ADT] Routine 05/31/20 20:43 Patient Status [ADT] Routine Admission Diagnosis/Problem Admission Diagnosis/Problem Functional Status: Reports: Pain Controlled - Review of Systems General: Reports: No Symptoms HEENT: Reports: No Symptoms Pulmonary: Reports: No Symptoms Cardiovascular: Reports: No Symptoms Gastrointestinal: Reports: No Symptoms Genitourinary: Reports: No Symptoms Musculoskeletal: Reports: No Symptoms Skin: Reports: No Symptoms Neurological: Reports: No Symptoms Psychiatric: Reports: No Symptoms - Patient Data Vitals - Most Recent: Last Vital Signs Temp 98.5 F 05/31/20 20:05 Pulse 85 05/31/20 20:05 Resp 14 05/31/20 20:05 BP 122/77 05/31/20 20:05 Pulse Ox 100 05/31/20 20:05 Weight - Most Recent: 212 lb I&O - Last 24 Hours: Intake & Output 05/31/20 06/01/20 06/01/20 22:59 06:59 14:59 Intake Total 300 Balance 300 Lab Results Last 24 Hours: Laboratory Results - last 24 hr 05/31/20 05/31/20 05/31/20 Range/Units 20:50 20:50 20:55 WBC 9.05 (3.98-10.04) K/mm3 RBC 4.01 (3.98-5.22) M/mm3 Hgb 10.9 L D (11.2-15.7) gm/dl Hct 34.6 (34.1-44.9) % MCV 86.3 (79.4-94.8) fl MCH 27.2 (25.6-32.2) pg MCHC 31.5 L (32.2-35.5) g/dl RDW Std Deviation 45.3 (36.4-46.3) fL Plt Count 275 (182-369) K/mm3 MPV 9.1 L (9.4-12.3) fl Neut % (Auto) 61.8 (34.0-71.1) % Lymph % (Auto) 27.6 (19.3-51.7) % [place] % (Auto) 9.3 (4.7-12.5) % Eos % (Auto) 0.9 (0.7-5.8) Baso % (Auto) 0.2 (0.1-1.2) % Neut # (Auto) 5.59 (1.56-6.13) K/mm3 Lymph # (Auto) 2.50 (1.18-3.74) K/mm3 [place] # (Auto) 0.84 H (0.24-0.36) K/mm3 Eos # (Auto) 0.08 (0.04-0.36) K/mm3 Baso # (Auto) 0.02 (0.01-0.08) K/mm3 RPR Non-reactive (NONREACTIVE) SARS-CoV-2 RNA (EVONNE) Negative (NEGATIVE) Med Orders - Current: Current Medications Diphenhydramine HCl (Benadryl) 25 mg IVPUSH Q6H PRN PRN Reason: pruritis Ephedrine Sulfate (Ephedrine Sulfate) 5 mg IVPUSH ASDIRECTED PRN PRN Reason: Hypotension Fentanyl (Sublimaze) 100 mcg EPIDUR Q3H PRN PRN Reason: Pain Last Admin: 06/01/20 08:23 Dose: 100 mcg Documented by: Fentanyl/Bupivacaine HCl (Fentanyl/Bupivacaine/Ns 2 Mcg-0.125% 100 Ml) 100 ml EPIDUR ASDIRECTED PRN PRN Reason: Pain Last Admin: 06/01/20 08:23 Dose: 100 ml Documented by: Lactated Ringer's (Ringers, Lactated) 1,000 mls @ 100 mls/hr IV ASDIRECTED JAELYN Last Admin: 06/01/20 10:19 Dose: 999 mls/hr Documented by: Oxytocin/Lactated Ringer's (Pitocin In Lr 10 Units/1,000 Ml) 10 unit in 1,000 mls @ 12 mls/hr IV TITRATE JAELYN; Protocol Last Titration: 06/01/20 10:50 Dose: 8 munits/min, 48 mls/hr Documented by: Nalbuphine HCl (Nubain) 10 mg IVPUSH Q2H PRN PRN Reason: Pain Ondansetron HCl (Zofran) 4 mg IVPUSH Q4H PRN PRN Reason: Nausea/Vomiting Last Admin: 05/31/20 23:41 Dose: 4 mg Documented by: Sodium Chloride (Saline Flush) 10 ml FLUSH ASDIRECTED PRN PRN Reason: Keep Vein Open Discontinued Medications Misoprostol (Cytotec) Confirm Administered Dose 200 mcg .ROUTE .STK-MED ONE Stop: 06/01/20 11:33 Misoprostol (Cytotec) Confirm Administered Dose 200 mcg .ROUTE .STK-MED ONE Stop: 06/01/20 11:34 - Exam General: Alert, Oriented HEENT: Pupils Equal, Mucous Membr. Moist/[place] Neck: Supple Lungs: Clear to Auscultation, Normal Respiratory Effort Cardiovascular: Regular Rate, Regular Rhythm GI/Abdominal Exam: Normal Bowel Sounds (Female) Exam: Normal External Exam Extremities: Normal Inspection, Non-Tender, No Pedal Edema, Normal Capillary Refill Skin: Warm, Dry, Intact Psy/Mental Status: Alert, Normal Affect, Normal Mood - Problem List & Annotations (1) 38 weeks gestation of SNOMED Code(s): 18869427 Code(s): Z3A.38 - 38 WEEKS GESTATION OF Status: Acute Current Visit: Yes (2) High risk due to smoking SNOMED Code(s): 17803454, 62636402 Code(s): O99.330 - SMOKING (TOBACCO) COMPLICATING , UNSP TRIMESTER Status: Acute Current Visit: Yes (3) Intrauterine growth restriction (IUGR) affecting care of mother SNOMED Code(s): 556646350 Code(s): O36.5990 - MATERN CARE FOR OTH OR SUSP POOR FETL GRTH, UNSP TRI, UNSP Status: Acute Current Visit: Yes Qualifiers: Fetus number: single or unspecified fetus Trimester: third trimester Qualified Code(s): O36.5930 - Maternal care for other known or suspected poor growth, third trimester, not applicable or unspecified (4) Nuchal cord with compression, delivered, current hospitalization SNOMED Code(s): 038721246, 739984501 Code(s): O69.1XX0 - LABOR AND DELIVERY COMP BY CORD AROUND NECK, W COMPRSN, UNSP Status: Acute Current Visit: Yes - Problem List Review Problem List Initiated/Reviewed/Updated: No - My Orders Last 24 Hours: My Active Orders 05/31/20 20:04 Resuscitation Status Routine 05/31/20 20:05 Vital Signs [RC] PER UNIT ROUTINE 05/31/20 20:43 Patient Status [ADT] Routine Activity as Tolerated [RC] PFP Communication Order [RC] ASDIRECTED Notify Provider [RC] PFP Notify Provider [RC] PRN Nalbuphine [Nubain] 10 mg IVPUSH Q2H PRN Ondansetron [Zofran] 4 mg IVPUSH Q4H PRN Sodium Chloride 0.9% [Saline Flush] 10 ml FLUSH ASDIRECTED PRN Electronic Heart Tones Ext w TOCO [WOMSER] Routine Electronic Heart Tones Internal [WOMSER] Per Unit Routine Peripheral IV Insertion Adult [OM.PC] Routine 05/31/20 20:44 Heart Tones [RC] ASDIRECTED Peripheral IV Care [RC] . DIRECTED 05/31/20 20:45 Lactated Ringers [Ringers, Lactated] 1,000 ml IV ASDIRECTED Oxytocin/Lactated Ringers [Pitocin in LR 10 Units/1,000 ML] 10 unit in 1,000 ml IV TITRATE 06/01/20 Breakfast Regular Diet [DIET] - Plan Plan:: Patient seen and examined by me and discussed with student. Plan delivery. Brief History: [facility] LIVE . L/D Delivery Note. [facility]: [id number] Date of : 87Patient Status: Inpatient. Attending Provider: Giovany Knight Number: [id number]. Date: 06/01/20 11:43Initialization Date: 06/01/20 11:43. L & D Note. - General Info. Date of Service: 06/01/20. Mother's Due Date: 06/09/20. - Delivery Note. Labor: Spontaneous, Augmented by Oxytocin. Delivery Outcome: Livebirth (Mild liveborn Tuesday06/01/2020 1125 hrs. SUAD nuchal cord x1 weight 2180 g / 4 pounds 12.9 ounces, 8/9 under epidural anesthesia over no episiotomy no laceration estimated blood loss 750 mL Cytotec 200 mcg each cheek x2 doses (400 mcg to aid in hemostasis.). Infant Delivery Method: Spontaneous Vaginal Delivery-Single. Delivery Mode: Spontaneous. Presentation: Right Occiput Anterior (SUAD). Nuchal Cord: Present (x1 reduced over left shoulder). Prep: Povidone-Iodine (Betadine. Anesthesia Type: Epidural. Amniotic Fluid Description: Clear. Episiotomy Type: None. Laceration: None. Placenta: Intact, Spontaneous (1128 hrs. 06/01/2020 small but not calcified central cord insertion discarded). Estimated Blood Loss: 750. Resuscitation Needed: No. [place]: Suctioned, Bulb Syringe, Stimulated, Warmed, Bigelow Used, Warmer Used. Provider: Giovany Knight. Score 1 min: 8. Score 5 min: 9. Induction Criteria. - Augmentation. Estimated Pelvis: Reports: Adequate. Weight Estimated:: Reports: SGA. Estimated Weight if LGA: 5 lb 8 oz. Reassuring Monitoring Strip: Yes. Absence of Tachy Systole: Yes. - General Info. Date of Service: 06/01/20. Admission Dx/Problem (Free Text): Patient Status Order with Admit Dx/Problem. 05/31/20 20:05. Patient Status [ADT] Routine. 05/31/20 20:43. Patient Status [ADT] Routine. Admission Diagnosis/Problem. Admission Diagnosis/Problem . Functional Status: Reports: Pain Controlled. - Review of Systems. General: Reports: No Symptoms. HEENT: Reports: No Symptoms. Pulmonary: Reports: No Symptoms. Cardiovascular: Reports: No Symptoms. Gastrointestinal: Reports: No Symptoms. Genitourinary: Reports: No Symptoms. Musculoskeletal: Reports: No Symptoms. Skin: Reports: No Symptoms. Neurological: Reports: No Symptoms. Psychiatric: Reports: No Symptoms. - Patient Data. Vitals - Most Recent: Last Vital Signs. Temp 98.5 F 05/31/20 20:05. Pulse 85 05/31/20 20:05. Resp 14 05/31/20 20:05. BP 122/77 05/31/20 20:05. Pulse Ox 100 05/31/20 20:05. Weight - Most Recent: 212 lb. I&O - Last 24 Hours: Intake & Output. 05/31/2012/11/2011. 22:5906:5914:59. Intake [id number]. [id number]. Lab Results Last 24 Hours: Laboratory Results - last 24 hr. 05/31/2012/10/2011Range/Units. 20:5020:5020:55. WBC 9.05 (3.98-10.04) K/mm3. RBC 4.01 (3.98-5.22) M/mm3. Hgb 10.9 L D (11.2-15.7) gm/dl. Hct 34.6 (34.1-44.9) %. MCV 86.3 (79.4-94.8) fl. MCH 27.2 (25.6- 32.2) pg. MCHC 31.5 L (32.2-35.5) g/dl. RDW Std Deviation 45.3 (36.4-46.3) fL. Plt Count 275 (182-369) K/mm3. MPV 9.1 L (9.4-12.3) fl. Neut % (Auto) 61.8 (34.0-71.1) %. Lymph % (Auto) 27.6 (19.3-51.7) %. [place] % (Auto) 9.3 (4.7-12.5) %. Eos % (Auto) 0.9 (0.7-5.8). Baso % (Auto) 0.2 (0.1-1.2) %. Neut # (Auto) 5.59 (1.56-6.13) K/mm3. Lymph # (Auto) 2.50 (1.18-3.74) K/mm3. [place] # (Auto) 0.84 H (0.24-0.36) K/mm3. Eos # (Auto) 0.08 (0.04-0.36) K/mm3. Baso # (Auto) 0.02 (0.01-0.08) K/mm3. RPR Non-reactive (NONREACTIVE). SARS-CoV-2 RNA (EVONNE) Negative (NEGATIVE). Med Orders - Current: Current Medications. Diphenhydramine HCl (Benadryl) 25 mg IVPUSH Q6H PRN. PRN Reason: pruritis. Ephedrine Sulfate (Ephedrine Sulfate) 5 mg IVPUSH ASDIRECTED PRN. PRN Reason: Hypotension. Fentanyl (Sublimaze) 100 mcg EPIDUR Q3H PRN. PRN Reason: Pain. Last Admin: 06/01/20 08:23 Dose: 100 mcg. Documented by: Fentanyl/Bupivacaine HCl (Fentanyl/Bupivacaine/Ns 2 Mcg-0.125% 100 Ml) 100 ml EPIDUR ASDIRECTED PRN. PRN Reason: Pain. Last Admin: 06/01/20 08:23 Dose: 100 ml. Documented by: Lactated Ringer's (Ringers, Lactated) 1,000 mls @ 100 mls/hr IV ASDIRECTED JAELYN. Last Admin: 06/01/20 10:19 Dose: 999 mls/hr. Documented by: Oxytocin/Lactated Ringer's (Pitocin In Lr 10 Units/1,000 Ml) 10 unit in 1,000 mls @ 12 mls/hr IV TITRATE JAELYN; Protocol. Last Titration: 06/01/20 10:50 Dose: 8 munits/min, 48 mls/hr. Documented by: Nalbuphine HCl (Nubain) 10 mg IVPUSH Q2H PRN. PRN Reason: Pain. Ondansetron HCl (Zofran) 4 mg IVPUSH Q4H PRN. PRN Reason: Nausea/Vomiting. Last Admin: 05/31/20 23:41 Dose: 4 mg. Documented by: Sodium Chloride (Saline Flush) 10 ml FLUSH ASDIRECTED PRN. PRN Reason: Keep Vein Open. Discontinued Medications. Misoprostol (Cytotec) Confirm Administered Dose 200 mcg .ROUTE .STK-MED ONE. Stop: 06/01/20 11:33. Misoprostol (Cytotec) Confirm Administered Dose 200 mcg .ROUTE .STK-MED ONE. Stop: 06/01/20 11:34. - Exam. General: Alert, Oriented. HEENT: Pupils Equal, Mucous Membr. Moist/[place]. Neck: Supple. Lungs: Clear to Auscultation, Normal Respiratory Effort. Cardiovascular: Regular Rate, Regular Rhythm. GI/Abdominal Exam: Normal Bowel Sounds. (Female) Exam: Normal External Exam. Extremities: Normal Inspection, Non-Tender, No Pedal Edema, Normal Capillary Refill. Skin: Warm, Dry, Intact. Psy/Mental Status: Alert, Normal Affect, Normal Mood. - Problem List & Annotations. (1) 38 weeks gestation of . SNOMED Code(s): 57395425. Code(s): Z3A.38 - 38 WEEKS GESTATION OF Status: Acute Current Visit: Yes. (2) High risk due to smoking. SNOMED Code(s): 94450504, 55089854. Code(s): O99.330 - SMOKING (TOBACCO) COMPLICATING , UNSP TRIMESTER Status: Acute Current Visit: Yes. (3) Intrauterine growth restriction (IUGR) affecting care of mother. SNOMED Code(s): 571090546. Code(s): O36.5990 - MATERN CARE FOR OTH OR SUSP POOR FETL GRTH, UNSP TRI, UNSP Status: Acute Current Visit: Yes. Qualifiers: Fetus number: single or unspecified fetus Trimester: third trimester Qualified Code(s): O36.5930 - Maternal care for other known or suspected poor growth, third trimester, not applicable or unspecified. (4) Nuchal cord with compression, delivered, current hospitalization. SNOMED Code(s): 086424591, 589970022. Code(s): O69.1XX0 - LABOR AND DELIVERY COMP BY CORD AROUND NECK, W COMPRSN, UNSP Status: Acute Current Visit: Yes. - Problem List Review. Problem List Initiated/Reviewed/Updated: No. - My Orders. Last 24 Hours: My Active Orders. 05/31/20 20:04. Resuscitation Status Routine. 05/31/20 20:05. Vital Signs [RC] PER UNIT ROUTINE. 05/31/20 20:43. Patient Status [ADT] Routine. Activity as Tolerated [RC] PFP. Communication Order [RC] ASDIRECTED. Notify Provider [RC] PFP. Notify Provider [RC] PRN. Nalbuphine [Nubain] 10 mg IVPUSH Q2H PRN. Ondansetron [Zofran] 4 mg IVPUSH Q4H PRN. Sodium Chloride 0.9% [Saline Flush] 10 ml FLUSH ASDIRECTED PRN. Electronic Heart Tones Ext w TOCO [WOMSER] Routine. Electronic Heart Tones Internal [WOMSER] Per Unit Routine. Peripheral IV Insertion Adult [OM.PC] Routine. 05/31/20 20:44. Heart Tones [RC] ASDIRECTED. Peripheral IV Care [RC] . DIRECTED. 05/31/20 20:45. Lactated Ringers [Ringers, Lactated] 1,000 ml IV ASDIRECTED. Oxytocin/Lactated Ringers [Pitocin in LR 10 Units/1,000 ML] 10 unit in 1,000 ml IV TITRATE. 06/01/20 Breakfast. Regular Diet [DIET]. - Plan. Plan:: Patient seen and examined by me and discussed with student. Plan delivery. Diagnosis: Stroke: No - Discharge Data Discharge Date: 06/03/20 Discharge Disposition: Home, Self-Care 01 Condition: Good - Referral to Home Health Primary Care Physician: Kleber Crisostomo MD - Discharge Diagnosis/Problem(s) (1) 38 weeks gestation of SNOMED Code(s): 89557810 ICD Code: Z3A.38 - 38 WEEKS GESTATION OF Status: Acute Current Visit: Yes (2) High risk due to smoking SNOMED Code(s): 43544011, 73749663 ICD Code: O99.330 - SMOKING (TOBACCO) COMPLICATING , UNSP TRIMESTER Status: Acute Current Visit: Yes (3) Intrauterine growth restriction (IUGR) affecting care of mother SNOMED Code(s): 348073354 ICD Code: O36.5990 - MATERN CARE FOR OTH OR SUSP POOR FETL GRTH, UNSP TRI, UNSP Status: Acute Current Visit: Yes Qualifiers: Fetus number: single or unspecified fetus Trimester: third trimester Qualified Code(s): O36.5930 - Maternal care for other known or suspected poor growth, third trimester, not applicable or unspecified (4) Nuchal cord with compression, delivered, current hospitalization SNOMED Code(s): 249529975, 900870975 ICD Code: O69.1XX0 - LABOR AND DELIVERY COMP BY CORD AROUND NECK, W COMPRSN, UNSP Status: Acute Current Visit: Yes - Patient Summary/Data Complications: none Consults: none Hospital Course: uneventful - Patient Instructions Diet: Usual Diet as Tolerated Driving: Do Not Drive (X48 hours) Notify Provider of: Fever, Increased Pain, Swelling and Redness, Drainage, Nausea and/or Vomiting - Discharge Plan *PRESCRIPTION DRUG MONITORING PROGRAM REVIEWED*: Not Applicable *COPY OF PRESCRIPTION DRUG MONITORING REPORT IN PATIENT DEVONTE: Not Applicable Home Medications: Home Meds Vits #93/Iron Fum/FA [ Formula Tablet] 1 each PO DAILY 03/02/20 [History] Acetaminophen [Tylenol] 650 mg PO Q6H PRN tablet 06/03/20 [Rx] Benzocaine/Menthol [Dermoplast Pain Relief [place]] 0 gm TOP ASDIRECTED PRN canister 06/03/20 [Rx] Docusate Sodium [Colace] 100 mg PO BID PRN cap 06/03/20 [Rx] Ibuprofen [Motrin] 600 mg PO Q6H PRN tablet 06/03/20 [Rx] Patient Handouts: Steps to Quit Smoking Referrals: Giovany Knight MD [Physician] - (Dr Crisostomo 2 weeks) - Discharge Summary/Plan Comment DC Time >30 min.: No - Patient Data Vitals - Most Recent: Last Vital Signs Temp 98.1 F 06/03/20 03:32 Pulse 69 06/03/20 03:32 Resp 16 06/03/20 03:32 BP 118/89 06/03/20 03:32 Pulse Ox 99 06/03/20 03:32 Weight - Most Recent: 212 lb I&O - Last 24 hours: Intake & Output 06/02/20 06/03/20 06/03/20 22:59 06:59 14:59 Intake Total 240 Balance 240 Med Orders - Current: Current Medications Acetaminophen (Tylenol) 650 mg PO Q4H PRN PRN Reason: mild pain or fever Last Admin: 06/01/20 17:20 Dose: 650 mg Documented by: Benzocaine/Menthol (Dermoplast Pain [facility] [place]) 0 gm TOP ASDIRECTED PRN PRN Reason: Pain (mild 1-3) Last Admin: 06/01/20 16:44 Dose: 1 can Documented by: Calcium Carbonate/Glycine (Tums) 1,000 mg PO Q2HR PRN PRN Reason: Indigestion Last Admin: 06/01/20 20:54 Dose: 1,000 mg Documented by: Docusate Sodium (Colace) 100 mg PO BID PRN PRN Reason: Constipation Last Admin: 06/03/20 03:51 Dose: 100 mg Documented by: Ibuprofen (Motrin) 600 mg PO Q4H PRN PRN Reason: Mild pain or fever Last Admin: 06/02/20 21:40 Dose: 600 mg Documented by: Misoprostol (Cytotec) 400 mcg PO ONETIME PRN PRN Reason: excessive vaginal bleeding Witjose Claudia (Tucks) 1 pad TOP ASDIRECTED PRN PRN Reason: Pain Last Admin: 06/01/20 16:45 Dose: 1 tub Documented by: Discontinued Medications Bupivacaine HCl (Sensorcaine-Mpf 0.25%) 10 ml .ROUTE .STK-MED ONE Stop: 06/01/20 00:01 Diphenhydramine HCl (Benadryl) 25 mg IVPUSH Q6H PRN PRN Reason: pruritis Ephedrine Sulfate (Ephedrine Sulfate) 5 mg IVPUSH ASDIRECTED PRN PRN Reason: Hypotension Fentanyl (Sublimaze) 100 mcg EPIDUR Q3H PRN PRN Reason: Pain Last Admin: 06/01/20 08:23 Dose: 100 mcg Documented by: Fentanyl/Bupivacaine HCl (Fentanyl/Bupivacaine/Ns 2 Mcg-0.125% 100 Ml) 100 ml EPIDUR ASDIRECTED PRN PRN Reason: Pain Last Admin: 06/01/20 08:23 Dose: 100 ml Documented by: Lactated Ringer's (Ringers, Lactated) 1,000 mls @ 100 mls/hr IV ASDIRECTED JAELYN Last Admin: 06/01/20 10:19 Dose: 999 mls/hr Documented by: Oxytocin/Lactated Ringer's (Pitocin In Lr 10 Units/1,000 Ml) 10 unit in 1,000 mls @ 12 mls/hr IV TITRATE JAELYN; Protocol Last Titration: 06/01/20 10:50 Dose: 8 munits/min, 48 mls/hr Documented by: Misoprostol (Cytotec) Confirm Administered Dose 200 mcg .ROUTE .STK-MED ONE Stop: 06/01/20 11:33 Last Admin: 06/01/20 11:33 Dose: 200 mcg Documented by: Misoprostol (Cytotec) Confirm Administered Dose 200 mcg .ROUTE .STK-MED ONE Stop: 06/01/20 11:34 Last Admin: 06/01/20 11:34 Dose: 200 mcg Documented by: Nalbuphine HCl (Nubain) 10 mg IVPUSH Q2H PRN PRN Reason: Pain Ondansetron HCl (Zofran) 4 mg IVPUSH Q4H PRN PRN Reason: Nausea/Vomiting Last Admin: 05/31/20 23:41 Dose: 4 mg Documented by: Sodium Chloride (Saline Flush) 10 ml FLUSH ASDIRECTED PRN PRN Reason: Keep Vein Open
== END 2020-06-03 11:50 | disposition home or self-care (01) | DRG 807 ==
LOC: JD.OBCHECK 19:49 → JD.OB 20:12 → JD.OBCHECK 20:51 → OBSVTOIN 06-01 11:25 → JD.OB 06-01 11:50
PROVIDERS: ADMIT Obstetrics & Gynecology; ATTEND Obstetrics & Gynecology
PROC: 10E0XZZ Delivery of Products of Conception, External Approach (ICD-10-PCS; principal; 2020-06-01)
PROC: 3E0P7VZ Introduction of Hormone into Female Reproductive, Via Natural or Artificial Opening (ICD-10-PCS; 2020-06-01)
PROC: 3E0R3BZ Introduction of Anesthetic Agent into Spinal Canal, Percutaneous Approach (ICD-10-PCS; 2020-06-01)
DX: O69.81X0 Labor and delivery complicated by cord around neck, without compression, not applicable or unspecified (principal); Z37.0 Single live birth; Z3A.38 38 weeks gestation of pregnancy; O36.5930 Maternal care for other known or suspected poor fetal growth, third trimester, not applicable or unspecified; O99.334 Smoking (tobacco) complicating childbirth; F17.210 Nicotine dependence, cigarettes, uncomplicated; Z20.828 Contact with and (suspected) exposure to other viral communicable diseases
CPT/HCPCS: 01967; 36415; 51701; 51702; 59025; 59409; 85025; 86592; A9270-GY; J2405; J2590; J3010; J3490; J7120; U0002